=== PATIENT | female | born 1980 | race Caucasian/White ===

== ENCOUNTER 2018-08-22 08:00 | Inpatient (IN) | payer MEDICAID ==
[~2018-08-22] VITALS: Ht 157.5 cm; Wt 94.1 kg
[2018-08-22] MEDS: MISOPROSTOL 50 MCG CAPSULE PO SCH ×2 (05:23→13:54)
[~2018-08-22 08:00] MED LIST: ACET500C5 PO; ALBU18HF INHALATION; IBUP-1561 PO; LORA-186 PO; PRENAT PO; PROM6.25 PO
[2018-08-22] MEDS ORDERED: URSO300C21 PO (09:40)
[2018-08-22 09:43] VITALS: Ht 157.5 cm; Wt 94.1 kg
[2018-08-22 09:44] VITALS: BP 118/57; PULSE 73; RESP 18
[2018-08-22] MEDS ORDERED: OXYTOCIN 30 UNITS/LR 500 ML IV PRN (10:00)
[2018-08-22] MEDS ORDERED: IBUPROFEN 600 MG TAB PO PRN (10:00)
[2018-08-22] MEDS ORDERED: BUTORPHANOL 2 MG INJ IV PRN (10:00)
[2018-08-22] MEDS ORDERED: OXYTOCIN 30 UNITS/LR 500 ML IV SCH ×2 (10:00)
[2018-08-22] MEDS ORDERED: LIDOCAINE 1% (MPF) 30 ML INJ INJ PRN (10:00)
[2018-08-22] MEDS ORDERED: METHYLERGONOVINE 0.2 MG INJ IM PRN (10:00)
[2018-08-22] MEDS ORDERED: MISOPROSTOL 200 MCG TAB PR PRN (10:00)
[2018-08-22] MEDS ORDERED: CARBOPROST 250 MCG INJ IM PRN (10:00)
[2018-08-22] MEDS: LACTATED RINGER'S 1,000 ML IV SCH ×3 (10:29→23:11)
[2018-08-22] MEDS: URSODIOL 300 MG CAP PO SCH ×2 (13:54→21:00)
[2018-08-23] MEDS ORDERED: ACETAMINOPHEN 325 MG TAB PO ONE (04:00)
[2018-08-23] MEDS: LACTATED RINGER'S 1,000 ML IV SCH ×2 (04:16→11:58)
[2018-08-23] MEDS: MISOPROSTOL 50 MCG CAPSULE PO SCH ×2 (05:00→05:23)
[2018-08-23] MEDS ORDERED: OXYTOCIN 30 UNITS/LR 500 ML IV SCH ×2 (06:00→14:03)
--- NOTE | 2018-08-23 08:24 | PREOPHP ---
DATE OF ADMISSION: 08/22/2018 HISTORY OF PRESENT ILLNESS: This is a 37-year-old female, 3, para 2, EDC 09/09/2018 intraute rine at 37 weeks and 4 days gestational age, was admitted yesterday for induction secondary to cholestasis of . Per Dr. Anderson and Dr. Brower, she was diagnosed with cholestasis of pr egnancy and she currently complains of occasional itching. She reports good movement, no vagin al bleeding or discharge. Her care took place with Dr. Brower. PAST MEDICAL HISTORY: None. MEDICATIONS: vitamins and Actigall. PAST SURGICAL HISTORY: None. OBSTETRICAL HISTORY: x2 vaginal delivery. GYNECOLOGIC HISTORY: 13, regular 3 to 4 days. She denies any sexually transmitted disease. Sexuall y active with 1 partner. SOCIAL HISTORY: She denies any smoking, drugs or alcohol. FAMILY HISTORY: None. REVIEW OF SYSTEMS: All within normal except history of present illness. PHYSICAL EXAMINATION: HEENT: Within normal. LUNGS: CTA bilateral. CARDIOVASCULAR: S1, S2, regular rhythm. ABDOMEN: Gravid, nontender. Negative CVA bilateral. EXTREMITIES: Negative edema. No calf tenderness. PELVIC: Vaginal exam, 480, -2 intact. heart tracing category 1. Mcintire: Regular contractions. ASSESSMENT: Intrauterine at 37 weeks and 4 days gestational age, advanced maternal age, ch olestasis of , status post Cytotec regimen currently in labor. PLAN: Anticipated vaginal delivery. Pitocin as needed. Dictated By: KADI GOMEZ MD ME/NTS Conf#: [id number] DID#: [id number] CC: KADI GOMEZ MD;*EndCC*
[2018-08-23] MEDS: URSODIOL 300 MG CAP PO SCH ×2 (09:16→21:22)
--- NOTE | 2018-08-23 14:03 | LDN ---
Date/Time of Note Date/Time of Note DATE: 08/23/18 TIME: 14:01 Delivery Summary Weeks of Gestation 37 Placenta Delivered: Spontaneously Meconium: Thick Episiotomy: No Anesthesia type: None Estimated blood loss: 200 Sponge & Needle done & correct: Yes All needle counts correct: Yes Any foreign bodies felt in the: No Delivery Information Sex Infant Sex: female Apgars 1 Minute: 9 5 Minute: 9 Suctioning Nose & mouth suctioned at jacek: No Delee suction performed: No Umbilical Cord Umbilical cord with: 3 Vessels Cord presentations: no nuchal cord Cord Blood was obtained: Yes KADI GOMEZ MD Aug 23, 2018 14:03
[2018-08-23] MEDS ORDERED: OXYTOCIN 30 UNITS/LR 500 ML IV PRN (14:30)
[2018-08-23] MEDS ORDERED: OXYCODONE/ASPIRIN (4.88/325) TAB PO PRN (14:30)
[2018-08-23] MEDS ORDERED: CARBOPROST 250 MCG INJ IM PRN (14:30)
[2018-08-23] MEDS ORDERED: NACL 0.9% 3 ML SYG IV SCH (14:30)
[2018-08-23] MEDS ORDERED: MISOPROSTOL 200 MCG TAB PR PRN (14:30)
[2018-08-23] MEDS ORDERED: BENZOCAINE 20% 56 ML SPRAY TOP PRN (14:30)
[2018-08-23] MEDS ORDERED: METHYLERGONOVINE 0.2 MG INJ IM PRN (14:30)
[2018-08-23] MEDS ORDERED: ONDANSETRON 4 MG INJ IV PRN (14:30)
[2018-08-23] MEDS ORDERED: ACETAMINOPHEN 325 MG TAB PO PRN (14:30)
[2018-08-23] MEDS ORDERED: WITCH HAZEL/GLYCERIN PAD PR PRN (14:30)
[2018-08-23 16:30] VITALS: BP 108/73; PULSE 80; RESP 18
[2018-08-23] MEDS: IBUPROFEN 600 MG TAB PO SCH (18:13)
[2018-08-23 20:15] VITALS: BP 108/59; PULSE 90; RESP 19
[2018-08-23] MEDS: SENNA/DOCUSATE NA (8.6MG/50MG) TAB PO SCH (21:22)
[2018-08-24] MEDS: IBUPROFEN 600 MG TAB PO SCH ×4 (00:48→14:49)
[2018-08-24 04:30] VITALS: BP 99/58; PULSE 68; RESP 19
[2018-08-24] MEDS: OXYCODONE/ASPIRIN (4.88/325) TAB PO PRN ×2 (07:46→20:37)
[2018-08-24 08:34] VITALS: BP 99/48; PULSE 71; RESP 18
[2018-08-24] MEDS: SENNA/DOCUSATE NA (8.6MG/50MG) TAB PO SCH ×2 (10:09→20:36)
[2018-08-24] MEDS: URSODIOL 300 MG CAP PO SCH ×3 (10:09→20:36)
--- NOTE | 2018-08-24 11:01 | DS ---
Date/Time of Note Date/Time of Note DATE: 08/24/18 TIME: 11:00 Obstetrical Discharge Record Final Diagnosis Final Diagnosis: Term delivered Vaginal Delivery Obstetrical Delivery: Spontaneous Complications Other (cholestasis of ) Augmentation: No Induction: Yes Condition on Discharge Physical Assessment Last Vitals: stable afebrile Voiding: Yes Bowel Movement: Yes Breast: Soft, non-tender, Filling Fundus: Firm Abdomen and Incision: soft nt Calf Tenderness: No Patient Condition: KADI Fisher MD Aug 24, 2018 11:01
--- NOTE | 2018-08-24 11:02 | PD.PPDC ---
[employer] Discharge Instruction Condition [id number] Patient Condition: Nasnf6o Fair Diet Culmj1Tg Diet: Xrtpw6k Resume Regular Diet Activity/Restrictions [id number] Activity: Gzvnm5r Normal Activity May Shower [id number] Restrictions: Toayn6a No Exercising No Lifting No Driving No Sexual Activity Nothing in the Vagina No [place] No Tampons, douche Follow-up Follow-up with Physician: 1, Week/Weeks Return to clinic for [id number] [employer] EDUCATION Instructions: Qaqvm7n Fever greater than 101 Chills Worsening abdominal pain Excessive Vaginal Bleeding More than 2 pads per hour Unable to tolerate diet [id number] OB Instructions: Qhnzf9j Breast Tenderness Depression Blurried Vision Headache KADI GOMEZ MD Aug 24, 2018 11:02
[2018-08-24 15:20] VITALS: BP 90/53; PULSE 71; RESP 18
[2018-08-24 20:20] VITALS: BP 100/63; PULSE 130; RESP 17
[2018-08-25] MEDS: IBUPROFEN 600 MG TAB PO SCH ×3 (00:01→11:44)
[2018-08-25 03:48] VITALS: BP 95/63; PULSE 95; RESP 18
[2018-08-25 08:00] VITALS: BP 107/62; PULSE 89; RESP 17
[2018-08-25] MEDS: URSODIOL 300 MG CAP PO SCH (09:23)
[2018-08-25] MEDS: SENNA/DOCUSATE NA (8.6MG/50MG) TAB PO SCH (09:23)
[2018-08-25] MEDS ORDERED: DIPHTH/TET/ACEL PERTUSS (ADULT) 0.5 ML VIAL IM* ONE (10:00)
== END 2018-08-25 14:36 | disposition home or self-care (01) | DRG 805 ==
LOC: L-D 08:40 → PP1 08-23 16:20
PROVIDERS: ADMIT Obstetrics & Gynecology; ATTEND Obstetrics & Gynecology
PROC: 3E033VJ Introduction of Other Hormone into Peripheral Vein, Percutaneous Approach (ICD-10-PCS; 2018-08-22)
PROC: 10E0XZZ Delivery of Products of Conception, External Approach (ICD-10-PCS; principal; 2018-08-22 08:00)
DX: O26.62 Liver and biliary tract disorders in childbirth (principal); K83.1 Obstruction of bile duct; Z37.0 Single live birth; Z3A.37 37 weeks gestation of pregnancy
CPT/HCPCS: 76815; 80053; 82150; 83690; 85014; 85018; 85025; 85610; 85730; 86592; 86850; 86900; 86901; 87340; 90715; 99464; J0595; J2210; J2590; J7120